=== PATIENT | male | born 1965 | race Caucasian/White ===

== ENCOUNTER 2018-12-26 20:37 | Emergency (ER) | payer MEDICAID, OTHER ==
[~2018-12-26] VITALS: Ht 157.5 cm; Wt 68.0 kg
--- NOTE | 2018-12-26 20:42 | NUR ---
PT [id number] PT PULLED OVER HIS VEHICLE DUE TO CP AND ABD PAIN. +N/-V. "PAIN STARTED AT 4PM TODAY BUT GOT WORSE" +N/-V. 2 NITRO AND 162 ASPRIN GIVEN PER EMS. PT AOX4. NAD NOTED. RESP EVEN AND UNLABORED. PT ON MONITOR IN BED 2. WILL CONTINUE TO MONITOR.
--- NOTE | 2018-12-26 20:45 | NUR ---
TECH AT BEDSIDE FOR EKG
[2018-12-26] MEDS ORDERED: MORPHINE SULFATE INJ 2 MG/ML DISP.SYRIN ONE (20:52)
--- NOTE | 2018-12-26 20:52 | NUR ---
TECH AT BEDSIDE FOR LAB DRAW
[2018-12-26 21:00] LABS: BASOPHILS % (AUTO) 0.2 % (0.0-2.0); EOSINOPHILS % (AUTO) 4.1 % (0.0-6.0); HEMATOCRIT 47 % (39-51); HEMOGLOBIN 16.2 g/dL (13.5-17.5); LYMPHOCYTES # (AUTO) 0.8 /CMM (0.8-4.8); LYMPHOCYTES % (AUTO) 6.2 % (20.0-44.0); MEAN CORPUSCULAR HGB CONC 34 g/dl (31.0-36.0); MEAN CORPUSCULAR VOLUME 97 fL (80-96); MONOCYTES # (AUTO) 0.7 /CMM (0.1-1.30); MONOCYTES % (AUTO) 5.5 % (2.0-12.0); NEUTROPHILS # (AUTO) 10.8 /CMM (1.8-8.9); PLATELET COUNT (AUTO) 234 /CMM (150-450); RED BLOOD CELL COUNT(AUTO) 4.87 MIL/uL (4.5-6.0); WHITE BLOOD COUNT (AUTO) 12.8 K/uL (4.3-11.0)
[2018-12-26] MEDS ORDERED: MORPHINE SULFATE INJ 2 MG/ML DISP.SYRIN IV ONE (21:00)
[2018-12-26] MEDS ORDERED: FAMOTIDINE/PF INJ 20 MG/2 ML VIAL IV ONE ×2 (21:00→21:23)
[2018-12-26] MEDS ORDERED: IV NS 0.9% 1,000 ML BAG IV ONE (21:00)
[2018-12-26 21:07] LABS: CALCIUM, SERUM 8.9 mg/dL (8.5-10.1); CARBON DIOXIDE 20 mmol/L (21-32); CHLORIDE 104 mmol/L (98-107); GLUCOSE 119 mg/dL (74-106); POTASSIUM 3.8 mmol/L (3.5-5.1); SODIUM SERUM 139 mmol/L (136-145); UREA NITROGEN, BLOOD 11 mg/dL (7-18)
--- NOTE | 2018-12-26 21:09 | NUR ---
RADIOLOGY AT BEDSIDE FOR XRAY
[2018-12-26 21:18] LABS: ALANINE AMINOTRANSFERASE 23 U/L (12-78); ALBUMIN 3.7 g/dL (3.4-5.0); ALKALINE PHOSPHATASE 95 U/L (46-116); ASPARTATE AMINOTRANSFERASE 15 U/L (15-37); BILIRUBIN,DIRECT 0.1 mg/dL (0.0-0.2); BILIRUBIN,TOTAL 0.6 mg/dL (0.2-1.0); TOTAL PROTEIN, SERUM 7.1 g/dL (6.4-8.2)
--- NOTE | 2018-12-26 21:26 | NUR ---
Patient is resting comfortably in bed with eyes closed. Easily aroused. VSS.
--- NOTE | 2018-12-26 21:45 | NUR ---
PT TAKEN TO RADIOLOGY VIA [facility]
[2018-12-26] MEDS ORDERED: IOHEXOL-300 100 ML VIAL IV ONE (21:48)
--- NOTE | 2018-12-26 22:04 | NUR ---
PT RETURNED FROM RADIOLOGY. PT TOLERATED WELL.
[2018-12-26 22:38] LABS: LIPASE 123 U/L (73-393)
[2018-12-26 22:39] LABS: ALCOHOL, BLOOD < 3 mg/dL (0-0)
[2018-12-26 23:02] VITALS: BP 142/76
--- NOTE | 2018-12-26 23:27 | NUR ---
IV removed. Catheter intact and site benign. Pressure and 4x4 applied to site. No bleeding noted.Patient discharged to home in stable condition. Written and verbal after care instructions given. Patient verbalizes understanding of instruction.
== END 2018-12-26 23:45 | disposition home or self-care (01) ==
LOC: ER 20:39
DX: R07.89 Other chest pain (principal); F10.10 Alcohol abuse, uncomplicated; F17.200 Nicotine dependence, unspecified, uncomplicated; R00.0 Tachycardia, unspecified; I44.5 Left posterior fascicular block; Y90.0 Blood alcohol level of less than 20 mg/100 ml
CPT/HCPCS: 36415; 71045; 74177; 80048; 80076; 80307; 83690; 84484; 85025; 93005; 96374; 96375; 99284; 99406; J2270; J3490; J7030; Q9967; G0480